=== PATIENT | female | born 1980 | race Caucasian/White ===

== ENCOUNTER 2016-11-13 12:39 | Emergency (ER) | payer SELFPAY ==
[~2016-11-13] VITALS: Ht 167.6 cm; Wt 56.7 kg
[~2016-11-13 12:39] MED LIST: MACROBID100 M1 PO; NORFLEX100 MG PO
[2016-11-13] MEDS ORDERED: CLINDAMYCIN150 MG PO (13:10)
[2016-11-13] MEDS ORDERED: NAPROSYN500 MG PO (13:10)
== END 2016-11-13 13:40 | disposition home or self-care (01) ==
LOC: ED 12:39
DX: N61.1 Abscess of the breast and nipple (principal); Z88.0 Allergy status to penicillin

== ENCOUNTER 2017-12-10 08:41 | Emergency (ER) | payer OTHER ==
[~2017-12-10] VITALS: Ht 170.1 cm; Wt 56.7 kg
[~2017-12-10 08:41] MED LIST changes: +CLINDAMYCIN150 MG PO; +NAPROSYN500 MG PO
[2017-12-10] MEDS ORDERED: ZOFRAN ODT4 MG SL (10:21)
[2017-12-10] MEDS ORDERED: IBUPROFEN600 MG PO (10:21)
== END 2017-12-10 10:45 | disposition home or self-care (01) ==
LOC: ED 08:41
DX: S00.81XA Abrasion of other part of head, initial encounter (principal); Z88.0 Allergy status to penicillin; W20.8XXA Other cause of strike by thrown, projected or falling object, initial encounter; Y93.89 Activity, other specified; Y92.89 Other specified places as the place of occurrence of the external cause; Y99.8 Other external cause status

== ENCOUNTER → 2020-02-27 | Outpatient (CLI) | payer OTHER ==
[~2020-02-27] MED LIST changes: +IBUPROFEN600 MG PO; +ZOFRAN ODT4 MG SL
== END | disposition home or self-care (01) ==
LOC: COVID19 14:25
PROVIDERS: ATTEND Internal Medicine
DX: Z20.828 Contact with and (suspected) exposure to other viral communicable diseases (principal)

== ENCOUNTER → 2020-10-09 | Outpatient (CLI) | payer OTHER | END | disposition home or self-care (01) | LOC: MAMMO 13:00 | PROVIDERS: ATTEND Family Medicine | DX: N60.01 Solitary cyst of right breast (principal) ==

== ENCOUNTER → 2021-12-09 | Outpatient (CLI) | payer OTHER | END | disposition home or self-care (01) | LOC: MAMMO 15:53 | PROVIDERS: ATTEND Internal Medicine | DX: Z12.31 Encounter for screening mammogram for malignant neoplasm of breast (principal); N60.01 Solitary cyst of right breast ==

== ENCOUNTER → 2021-12-30 | Day surgery (SDC) | payer OTHER ==
[~2021-12-30] VITALS: Ht 165.1 cm; Wt 56.2 kg
[~2021-12-30] MED LIST changes: +CLARITIN10 MG PO; +NEURONTIN100 MG PO
[2021-12-30 06:40] VITALS: BP 119/59
[2021-12-30 07:29] VITALS: BP 119/59
[2021-12-30 08:02] VITALS: BP 125/87
[2021-12-30 08:17] VITALS: BP 113/62
[2021-12-30 08:32] VITALS: BP 113/34
== END | disposition home or self-care (01) ==
LOC: SDC 12-26 11:45
PROVIDERS: ATTEND Orthopaedic Surgery
DX: G56.01 Carpal tunnel syndrome, right upper limb (principal); Z87.891 Personal history of nicotine dependence; Z88.0 Allergy status to penicillin

== ENCOUNTER 2024-12-25 19:33 | Emergency (ER) | payer SELFPAY ==
[~2024-12-25] VITALS: Ht 167.6 cm; Wt 55.8 kg
[2024-12-25 20:15] LABS: BASO # 0.1 10*3/uL (0.0-0.1); BASO % 0.5 % (0.0-1.0); EOS # 0.0 10*3/uL (0.0-0.4); EOS % 0.1 % (1.0-4.0); MEAN CELL VOLUME 97.0 fl (81.0-99.0); MEAN CORPUSCULAR HGB 32.0 pg (27.0-31.0); MEAN PLATELET VOLUME 9.2 fl (9.6-12.3); MONO # 1.3 10*3/uL (0.1-1.0); MONO % 8.5 % (3.0-9.0); NEUT # 11.5 10*3/uL (2.3-7.9); NEUT % 77.3 % (47.0-73.0); NUCLEATED RED BLOOD CELL 0.0 % (0.0-0.0); NUCLEATED RED BLOOD CELL 0.0 10*3/uL (0.0-0.0); PLATELET COUNT AUTOMATED 358 10*3/uL (130-400); RED CELL DISTRI WIDTH 12.9 % (0-14.5)
[2024-12-25 20:32] LABS: BUN 7 mg/dl (9-23)
[2024-12-25] MEDS ORDERED: ZITHROMAX250 MG PO (20:37)
[2024-12-25] MEDS ORDERED: PREDNISONE50 MG PO (20:37)
[2024-12-25] MEDS ORDERED: POTASSIUM CHLORIDE 20 MEQ TAB PO ONE (20:40)
[2024-12-25] MEDS ORDERED: AZITHROMYCIN 250 MG TAB PO ONE (20:40)
[2024-12-25] MEDS ORDERED: GUAIFENESIN 200 MG TAB PO ONE (20:40)
[2024-12-25] MEDS ORDERED: Water, Sterile 10 ML VIAL ONE (21:16)
== END 2024-12-25 21:03 | disposition home or self-care (01) ==
LOC: ED 19:33
PROVIDERS: Nurse Practitioner Family
DX: J98.4 Other disorders of lung (principal); Z20.822 Contact with and (suspected) exposure to COVID-19; Z88.0 Allergy status to penicillin; Z87.891 Personal history of nicotine dependence